=== PATIENT | female | born 1970 | race African-American/Black ===

== ENCOUNTER 2016-11-15 11:53 | Inpatient (IN) | payer OTHER ==
[2016-11-15 13:03] VITALS: BMI 15.0
--- NOTE | 2016-11-15 15:43 | HP ---
COWS - Scale Resting Pulse: 1= UT 81-100 Sweatin=Flushed/Facial Moisture Restless Observation: 1= Difficult to Sit Still Pupil Size: 1= Pupils >than Normal Bone or Joint Aches: 2= Severe Diffuse Aches Runny Nose/ Eye Tearin= Constantly Teary/Runny GI Upset > 30mins: 1= Stomach Cramp Tremor Observation: 2= Slight Tremor Visible Yawning Observation: 0= None Anxiety or Irritability: 2=Irritable/Anxious Goose Flesh Skin: 0=Smooth Skin COWS Score: 16 CIWA Score - CIWA Score Nausea/Vomitin Muscle Tremors: 3 Anxiety: 4-Mod. Anxious/Guarded Agitation: 4-Moderately Restless Paroxysmal Sweats: 3 Orientation: 0-Oriented Tacttile Disturbances: 2-Mild Itch/Numbness/Burn Auditory Disturbances: 0-None Visual Disturbances: 0-None Headache: 0-None Present CIWA-Ar Total Score: 19 Admission ROS BHS - HPI Chief Complaint: I need help to stop using drugs -i want a life History of Present Illness: 45 y/o f pt with h/o heroin crack and alcohol dependency seeking detox. Exam Limitations: No Limitations - Ebola screening Have you traveled outside of the country in the last 21 days: No Have you had contact with anyone from an Ebola affected area: No Have you been sick,other than usual withdrawal symptoms: No Do you have a fever: No - Review of Systems Constitutional: Malaise, Night Sweats, Changes in sleep, Unintentional Wgt. Loss (10 x 4 months) EENT: reports: No Symptoms Reported Respiratory: reports: No Symptoms reported Cardiac: reports: No Symptoms Reported GI: reports: Nausea, Indigestion : reports: Frequency, Urgency Musculoskeletal: reports: Muscle Weakness (legs swathi) Integumentary: reports: No Symptoms Reported Neuro: reports: Weakness Endocrine: reports: No Symptoms Reported Hematology: reports: No Symptoms Reported Psychiatric: reports: Agitated, Anxious, Depressed, other (crying) Other Systems: Reviewed and Negative Patient History - Patient Medical History Hx Anemia: No Hx Asthma: Yes Hx Chronic Obstructive Pulmonary Disease (COPD): No Hx Cancer: No Hx Cardiac Disorders: No Hx Congestive Heart Failure: No Hx Hypertension: No Hx Hypercholesterolemia: Yes Hx Pacemaker: No HX Cerebrovascular Accident: No Hx Seizures: Yes (last sz 2 months ago. ) Hx Dementia: No Hx Diabetes: No Hx Gastrointestinal Disorders: Yes Hx Liver Disease: No Hx Genitourinary Disorders: Yes (uti, polyuria, cloudy urine ) Hx Sexually Transmitted Disorders: No Hx Renal Disease (ESRD): No Hx Thyroid Disease: No Hx Human Immunodeficiency Virus (HIV): No Hx Hepatitis C: Yes Hx Depression: Yes Hx Suicide Attempt: Yes (cut wrist 4 m ago. ) Hx Bipolar Disorder: Yes Hx Schizophrenia: No - Patient Surgical History Past Surgical History: No - PPD History Documented Results: Negative w/o proof PPD to be Administered?: Yes - Reproductive History Patient is a Female of Child Bearing Age (11 -55 yrs old): Yes Last Menstrual Period: 05/17/16 Patient : No - Smoking Cessation Smoking history: Current every day smoker Have you smoked in the past 12 months: Yes Aproximately how many cigarettes per day: 10 Cigars Per Day: 0 Hx Chewing Tobacco Use: No Initiated information on smoking cessation: Yes 'Breaking Loose' booklet given: 11/15/16 - Substance & Tx. History Hx Alcohol Use: Yes Hx Substance Use: Yes Substance Use Type: Alcohol, Cocaine, Heroin Hx Substance Use Treatment: Yes - Substances Abused Alcohol Route: Oral Frequency: Daily Amount used: beer 5 , 24 oz cans /d Age of first use: 14 Date of Last Use: 11/15/16 Crack Route: Smoking Frequency: Daily Amount used: $50./d Age of first use: 14 Date of Last Use: 11/14/16 Heroin Route: Inhalation Frequency: Daily Amount used: 1 bundle/d Age of first use: 16 Date of Last Use: 11/15/16 Family Disease History - Family Disease History Family Disease History: Other: Sister (sz, asthma ) Admission Physical Exam BHS - Vital Signs Vital Signs: Vital Signs - 24 hr 11/15/16 13:00 Temperature 98.3 F Pulse Rate 99 H Respiratory 18 Rate Blood Pressure 148/106 45 y/o slim f pt crying , anxious but aox3 cooperative with exam - Physical General Appearance: Yes: Disheveled, Thin, Irritable, Sweating, Anxious HEENTM: Yes: EOMI, Hearing grossly Normal, Normocephalic, Normal Voice, CHARLES Respiratory: Yes: Chest Non-Tender, Lungs Clear, Normal Breath Sounds, No Respiratory Distress Neck: Yes: Supple, Trachea in good position Breast: Yes: Breast Exam Deferred Cardiology: Yes: Regular Rhythm, Regular Rate, S1, S2 Abdominal: Yes: Non Tender, Flat, Soft, Increased Bowel Sounds Genitourinary: Yes: Uregency Back: Yes: Decreased Range of Motion Musculoskeletal: Yes: Muscle Pain (legs) Extremities: Yes: Tremors Neurological: Yes: surfacer operator II-XII NML intact, Fully Oriented, Alert, Motor Strength 5/5, Normal Response Integumentary: Yes: Normal Color Lymphatic: Yes: Within Normal Limits - Diagnostic (1) Opioid dependence with withdrawal Current Visit: Yes Status: Chronic (2) Alcohol dependence with uncomplicated withdrawal Current Visit: Yes Status: Chronic (3) Crack cocaine use Current Visit: Yes Status: Chronic (4) HTN (hypertension) Current Visit: Yes Status: Chronic Qualifiers: Hypertension type: essential hypertension Qualified Code(s): I10 - Essential (primary) hypertension (5) UTI (urinary tract infection) Current Visit: Yes Status: Acute Qualifiers: Urinary tract infection type: acute cystitis (6) Depression Current Visit: Yes Status: Chronic Qualifiers: Depression Type: unspecified Qualified Code(s): F32.9 - Major depressive disorder, single episode, unspecified (7) Bipolar 1 disorder Current Visit: Yes Status: Chronic Cleared for Admission BHS - Detox or Rehab Detox Regimen/Protocol: Methadone/Valium BHS Breath Alcohol Content Breath Alcohol Content: 0 Urine Pregancy Test - Result Urine Test Results: Negative- NO Line Present Urine Drug Screen - Results Drug Screen Negative: No Urine Drug Screen Results: THC-Marijuana, EUNICE-Cocaine, OPI-Opiates, TCA- Tricyclic Antidepress
[2016-11-15] MEDS ORDERED: ACETAMINOPHEN 325 MG TABLET (FP) PO PRN (16:03)
[2016-11-15] MEDS ORDERED: diazePAM 5 MG TABLET PO PRN (16:03)
[2016-11-15] MEDS ORDERED: MAGNESIUM CITRATE 300 ML BOTTLE PO PRN (16:03)
[2016-11-15] MEDS ORDERED: MAG HYDROX/AL HYDROX/SIMETH 30 ML UNIT-DOSE CUP PO PRN (16:03)
[2016-11-15] MEDS ORDERED: IBUPROFEN 400 MG TABLET (FP) PO PRN (16:03)
[2016-11-15] MEDS ORDERED: P-EPHED 60MG/TRIPROLIDI 2.5MG TABLET PO PRN (16:03)
[2016-11-15] MEDS ORDERED: guaiFENesin/D-METHORPHAN HB 10 ML UNIT-DOSE CUPS PO PRN (16:03)
[2016-11-15] MEDS ORDERED: NICOTINE POLACRILEX 4 MG GUM BC PRN (16:03)
[2016-11-15] MEDS ORDERED: hydrOXYzine PAMOATE 25 MG CAPSULE (FP) PO PRN (16:03)
[2016-11-15] MEDS ORDERED: LOPERAMIDE HCL 2 MG CAPSULE PO PRN (16:03)
[2016-11-15] MEDS ORDERED: MENTHOL/PHENOL 1 EACH UD MM PRN (16:03)
[2016-11-15] MEDS ORDERED: diphenhydrAMINE HCL 50 MG CAPSULE PO PRN (16:03)
[2016-11-15] MEDS ORDERED: MAGNESIUM HYDROX 2400MG/30ML ORAL SUSPENSION 30 ML CUP PO PRN (16:03)
[2016-11-15] MEDS ORDERED: METHADONE HCL 10 MG TABLET (FOR DETOX USE ONLY) PO ONE ×2 (17:30→23:00)
[2016-11-15] MEDS ORDERED: diazePAM 5 MG TABLET PO ONE (17:30)
[2016-11-15 19:42] VITALS: BP 124/76; PULSE 114; TEMP 98.1
--- NOTE | 2016-11-15 19:42 | PN ---
[facility] Progress Note Note: respond to rapid response, received reports that the patient syncope, lying on floor, hit her head on floor assist to wheel chair, patient became alert, speech clearly, normal cephalic, PERRLA, EOMI, tachychardia, wheezing bilaterally, vomiting x 1 during nebulizer, shortness of breath, ambulance was called, information provided to er
[2016-11-15] MEDS ORDERED: diazePAM 5 MG TABLET PO SCH (22:00)
[2016-11-15] MEDS ORDERED: THIAMINE HCL 100 MG TABLET (FP) PO SCH (22:00)
[2016-11-15] MEDS ORDERED: DIVALPROEX SODIUM 500 MG TABLET E.C. PO SCH (22:00)
[2016-11-15 22:34] LABS: URINE APPEARANCE TURBID; URINE BILIRUBIN NEGATIVE (NEGATIVE); URINE COLOR YELLOW; URINE GLUCOSE (UA) NEGATIVE (NEGATIVE); URINE KETONE NEGATIVE (NEGATIVE); URINE NITRITE NEGATIVE (NEGATIVE); URINE UROBILINOGEN NEGATIVE E.U./dl (0.2-1.0)
[2016-11-15 22:51] LABS: URINE BLOOD 1+ (NEGATIVE); URINE LEUK ESTERASE 2+ (NEGATIVE); URINE PROTEIN 1+ (NEGATIVE)
[2016-11-15 23:03] LABS: URINE BACTERIA RARE /hpf (NONE SEEN); URINE MUCUS RARE; URINE RBC 31 /hpf (0-3); URINE WBC 28 /hpf (3-5); YEAST MANY
--- NOTE | 2016-11-16 02:00 | PN ---
[facility] Progress Note Note: PER HCG FROM HER ER ADMISSION, PT. IS . ENVIRONMENTAL CONSULTANT S/W THE RN AT [facility] ([facility]) AND STATED WE DO NOT DETOX WOMEN. FOOT DRILL OPERATOR ALSO S/W ОЛЕГ HUTTON TO CONFIRM HER THAT THE PT. CANNOT CONTINUE DETOX.
--- NOTE | 2016-11-16 09:02 | DS ---
[facility] Detox Discharge Summary Admission Date: 11/15/16 Discharge Date: 11/16/16 - History Present History: Alcohol Dependence, Cocaine Dependence, Opioid Dependence - Physical Exam Results Vital Signs: Vital Signs Temperature 98.1 F 11/15/16 19:41 Pulse Rate 114 H 11/15/16 19:41 Respiratory Rate 18 11/16/16 03:30 Blood Pressure 124/76 11/15/16 19:41 O2 Sat by Pulse Oximetry (%) - Treatment Hospital Course: Detox Protocol Followed - Medication Discharge Medications: Ambulatory Orders Clonidine HCl [Catapres -] 0.2 mg PO BID 11/15/16 Divalproex Sodium [Depakote] 500 mg PO BID #20 tablet. 11/15/16 Divalproex [Depakote -] 500 mg PO BID 11/15/16 Quetiapine Fumarate [Seroquel -] 150 mg PO HS 11/15/16 - Diagnosis (1) Opioid dependence with withdrawal Status: Chronic (2) Alcohol dependence with uncomplicated withdrawal Status: Chronic (3) Crack cocaine use Status: Chronic (4) HTN (hypertension) Status: Chronic Qualifiers: Hypertension type: essential hypertension Qualified Code(s): I10 - Essential (primary) hypertension (5) UTI (urinary tract infection) Status: Acute Qualifiers: Urinary tract infection type: acute cystitis (6) Depression Status: Chronic Qualifiers: Depression Type: unspecified Qualified Code(s): F32.9 - Major depressive disorder, single episode, unspecified (7) Bipolar 1 disorder Status: Chronic (8) Status: Acute - AMA Did Patient Leave Against Medical Advice: No
[2016-11-16] MEDS ORDERED: amLODIPine BESYLATE 5 MG TABLET (FP) PO SCH (10:00)
[2016-11-16] MEDS ORDERED: PRENATAL VITAMINS W/ FOLIC ACID TABLET (FP) PO SCH (10:00)
[2016-11-16] MEDS ORDERED: NICOTINE 21 MG/24 HOURS TOPICAL PATCH TD SCH (10:00)
[2016-11-16] MEDS ORDERED: METHADONE HCL 10 MG TABLET (FOR DETOX USE ONLY) PO SCH (10:00)
[2016-11-16 11:45] LABS: MCHC 32.4 g/dl (32.0-36.0); MEAN CELL VOLUME 98.9 fl (80-96); MEAN PLT VOLUME 10.7 fl (7.5-11.1); RDW 14.9 % (11.6-15.6); WHITE BLOOD COUNT 7.6 K/mm3 (4.0-10.0)
[2016-11-16 11:46] LABS: ALBUMIN 3.7 g/dl (3.4-5.0); CALCIUM 9.6 mg/dL (8.5-10.1)
[2016-11-16 11:50] LABS: BILIRUBIN,TOTAL 0.6 mg/dL (0.2-1.0); COCKROFT - GAULT 54.9355; TOT PROT 7.9 g/dl (6.4-8.2)
[2016-11-16] MEDS ORDERED: INFLUENZA VACCINE 45 MCG/0.5 ML (MDV 16-17) IM ONE (12:00)
[2016-11-16 12:01] LABS: HIV 1 & 2 AB NEGATIVE; HIV 1 AGp24 NEGATIVE
[2016-11-16 13:27] LABS: PLATELET ESTIMATE DECREASED (NORMAL)
[2016-11-16 13:28] LABS: ANISOCYTOSIS 1+; HYPOCHROMIA 1+; PLATELET COUNT 255 K/MM3 (134-434)
--- NOTE | 2016-11-16 13:59 | EKG ---
Test Reason : Blood Pressure : / mmHG Vent. Rate : 089 BPM Atrial Rate : 089 BPM P-R Int : 124 ms QRS Dur : 082 ms QT Int : 378 ms P-R-T Axes : 068 064 052 degrees QTc Int : 459 ms NORMAL SINUS RHYTHM POSSIBLE LEFT ATRIAL ENLARGEMENT LEFT VENTRICULAR HYPERTROPHY NONSPECIFIC T WAVE ABNORMALITY ABNORMAL ECG NO PREVIOUS ECGS AVAILABLE CLINICAL CORRELATION IS RECOMMENDED Confirmed by SALENA DARBY, MIGUEL ([id number]) on 11/16/2016 1:58:39 PM Referred By: Confirmed By:MIGUEL MARTINO MD
[2016-11-17] MEDS ORDERED: diazePAM 5 MG TABLET PO SCH (10:00)
[2016-11-17] MEDS ORDERED: METHADONE HCL 5 MG TABLET (FOR DETOX USE ONLY) PO SCH (10:00)
[2016-11-19] MEDS ORDERED: diazePAM 5 MG TABLET PO SCH (10:00)
[2016-11-19] MEDS ORDERED: METHADONE HCL 10 MG TABLET (FOR DETOX USE ONLY) PO SCH (10:00)
[2016-11-20] MEDS ORDERED: METHADONE HCL 5 MG TABLET (FOR DETOX USE ONLY) PO SCH (06:00)
== END 2016-11-16 07:09 | disposition short-term general hospital (02) | DRG 566 ==
LOC: YASAS 11:53 → Y6N 16:29
PROVIDERS: ADMIT Internal Medicine Addiction Medicine; ATTEND Internal Medicine Addiction Medicine
PROC: HZ2ZZZZ Detoxification Services for Substance Abuse Treatment (ICD-10-PCS; principal; 2016-11-16)
DX: O99.321 Drug use complicating pregnancy, first trimester (principal); F11.23 Opioid dependence with withdrawal; O99.311 Alcohol use complicating pregnancy, first trimester; F10.239 Alcohol dependence with withdrawal, unspecified; O99.341 Other mental disorders complicating pregnancy, first trimester; O23.41 Unspecified infection of urinary tract in pregnancy, first trimester; Z3A.00 Weeks of gestation of pregnancy not specified; R55 Syncope and collapse
CPT/HCPCS: 36415; 80053; 81003; 81015; 85027; 86593; 87389; 93005; 93010

== ENCOUNTER 2016-11-15 20:08 | Emergency (ER) | payer OTHER ==
--- NOTE | 2016-11-15 20:25 | PDOC ---
History of Present Illness - General Stated Complaint: SYNCOPE Time Seen by Provider: 11/15/16 20:15 History Source: Patient, EMS Exam Limitations: No Limitations - History of Present Illness Presenting Symptoms: Other (no complaints) Past History - Travel Traveled outside of the country in the last 30 days: No Close contact w/someone who was outside of country & ill: No - Past Medical History Allergies/Adverse Reactions: Allergies Allergy/AdvReac Type Severity Reaction Status Date / Time aripiprazole [From Abiliy] Allergy Severe Swelling Verified 11/15/16 20:32 Home Medications: Ambulatory Orders Clonidine HCl [Catapres -] 0.2 mg PO BID 11/15/16 Divalproex Sodium [Depakote] 500 mg PO BID #20 tablet. 11/15/16 Divalproex [Depakote -] 500 mg PO BID 11/15/16 Quetiapine Fumarate [Seroquel -] 150 mg PO HS 11/15/16 Anemia: No Asthma: Yes (Pt is on MDI.) Cancer: No Cardiac Disorders: No CVA: No COPD: No CHF: No Dementia: No Diabetes: No GI Disorders: No Disorders: No HTN: Yes (on meds.) Hypercholesterolemia: Yes Kidney Stones: No Liver Disease: No Suicide Attempt (Hx): Yes (Pt tried to cut herself 4 months ago.) Seizures: Yes (etoh related seizures last 1 month ago.) Thyroid Disease: No - Reproductive History PID: No - Psycho/Social/Smoking Cessation Hx Anxiety: Yes Suicidal Ideation: No Smoking History: Current every day smoker Have you smoked in the past 12 months: Yes Number of Cigarettes Smoked Daily: 10 Cigars Per Day: 0 'Breaking Loose' booklet given: 11/15/16 Hx Alcohol Use: Yes Drug/Substance Use Hx: Yes Substance Use Type: Alcohol, Cocaine, Heroin Hx Substance Use Treatment: Yes Cardiac Specific PMH - Complaint Specific PMHX Pacemaker: No Review of Systems - Review of Systems Able to Perform ROS?: Yes Comments:: 11/15/16 20:25 CONSTITUTIONAL: Absent: fever, chills, diaphoresis, generalized weakness, malaise, loss of appetite HEENT: Absent: rhinorrhea, nasal congestion, throat pain, throat swelling, difficulty swallowing, mouth swelling, ear pain, eye pain, visual Changes CARDIOVASCULAR: Absent: chest pain, loss of consciousness, palpitations, irregular heart rate, peripheral edema RESPIRATORY: Absent: cough, shortness of breath, dyspnea with exertion, orthopnea, wheezing, stridor, hemoptysis GASTROINTESTINAL: Absent: abdominal pain, abdominal distension, nausea, vomiting, diarrhea, constipation, melena, hematochezia GENITOURINARY: Absent: dysuria, frequency, urgency, hesitancy, hematuria, flank pain, genital pain MUSCULOSKELETAL: Absent: myalgia, arthralgia, joint swelling SKIN: Absent: rash, itching, pallor HEMATOLOGIC/IMMUNOLOGIC: Absent: easy bleeding, easy bruising, lymphadenopathy, frequent infections ENDOCRINE: Absent: unexplained weight gain, unexplained weight loss, heat intolerance, cold intolerance NEUROLOGIC: Syncope Absent: headache, focal weakness or paresthesias, dizziness, unsteady gait, seizure, mental status changes, bladder or bowel incontinence PSYCHIATRIC: Absent: anxiety, depression, suicidal or homicidal ideation, hallucinations. Is the patient limited Kazakh proficient: No *Physical Exam - Vital Signs Last Vital Signs Temp Pulse Resp BP Pulse Ox 98.7 F 94 H 18 144/94 99 11/15/16 20:15 11/16/16 01:32 11/16/16 01:32 11/16/16 01:32 11/16/16 01:32 - Physical Exam Comments: 11/15/16 20:25 GENERAL: Well developed, well nourished. Awake and alert. No acute distress. HEENT: Normocephalic, atraumatic. PERRLA, EOMI. No conjunctival pallor. Sclera are non- icteric. Moist mucous membranes. Oropharynx is clear. NECK: Supple. Full ROM. No JVD. Carotid pulses 2+ and symmetric, without bruits. No thyromegaly. No lymphadenopathy. CARDIOVASCULAR: Regular rate and rhythm. No murmurs, rubs, or gallops. Distal pulses are 2+ and symmetric. PULMONARY: No evidence of respiratory distress. Lungs clear to auscultation bilaterally. No wheezing, rales or rhonchi. ABDOMINAL: Soft. Non-tender. Non-distended. No rebound or guarding. No organomegaly. Normoactive bowel sounds. MUSCULOSKELETAL Normal range of motion at all joints. No bony deformities or tenderness. No CVA tenderness. EXTREMITIES: No cyanosis. No clubbing. No edema. No calf tenderness. SKIN: Warm and dry. Normal capillary refill. No rashes. No jaundice. NEUROLOGICAL: Alert, awake, appropriate. Cranial nerves 2-12 intact. No deficits to light touch and temperature in face, upper extremities and lower extremities. No motor deficits in the in face, upper extremities and lower extremities. Normoreflexic in the upper and lower extremities. Normal speech. Toes are down- going bilaterally. Gait is normal without ataxia. PSYCHIATRIC: Cooperative. Good eye contact. Appropriate mood and affect. 11/16/16 05:41 Pelvic: External genitalia normal without lesions. Vaginal vault is clear without blood or discharge. Cervix is long and closed. No cervical motion tenderness. Uterus is nontender and normal in size. Adnexa are nontender and without masses. Heart Score/ECG Review - History History: Slightly suspicious - Electrocardiogram EKG: Normal - Age Age: >/= 65 - Risk Factors Risk Factors Heart Score: Yes Hx Hypertension, Yes Smoking History Based on the list above the patient has:: 1-2 risk factors - Troponin Troponin: </= normal limit - Score Heart Score - Total: 3 ED Treatment Course - LABORATORY CBC & Chemistry Diagram: 11/15/16 20:40 11/15/16 20:40 - ADDITIONAL ORDERS Additional order review: Laboratory Results 11/16/16 11/15/16 11/15/16 00:50 22:08 22:08 Sodium Potassium Chloride Carbon Dioxide Anion Gap BUN Creatinine Creat Clearance w eGFR Random Glucose Calcium Total Bilirubin AST ALT Alkaline Phosphatase Creatine Kinase Troponin I Total Protein Albumin Beta HCG, Quant Serum , Qual Urine Color Yellow Urine Appearance Clear Urine pH 7.0 Ur Specific [place] 1.025 Urine Protein 1+ H Urine Glucose (UA) Negative Urine Ketones Negative Urine Blood 2+ H Urine Nitrite Negative Urine Bilirubin Negative Urine Urobilinogen 2.0 e.u/dl H Ur Leukocyte Esterase Trace H D Urine RBC 86 Urine WBC 9 Ur Epithelial Cells Rare Hyaline Casts 1 Urine Mucus Rare Opiates Screen Positive Methadone Screen Positive Barbiturate Screen Negative Valproic Acid Phencyclidine Screen Negative Ur Amphetamines Screen Negative MDMA (Ecstasy) Screen Negative Benzodiazepines Screen Positive Cocaine Screen Positive U Marijuana (THC) Screen Positive Alcohol, Quantitative Blood Type A NEGATIVE Antibody Screen Negative 11/15/16 11/15/16 11/15/16 21:51 20:40 20:40 Sodium Potassium Chloride Carbon Dioxide Anion Gap BUN Creatinine Creat Clearance w eGFR Random Glucose Calcium Total Bilirubin AST ALT Alkaline Phosphatase Creatine Kinase Troponin I Total Protein Albumin Beta HCG, Quant 6.5 Serum , Qual Positive Urine Color Urine Appearance Urine pH Ur Specific [place] Urine Protein Urine Glucose (UA) Urine Ketones Urine Blood Urine Nitrite Urine Bilirubin Urine Urobilinogen Ur Leukocyte Esterase Urine RBC Urine WBC Ur Epithelial Cells Hyaline Casts Urine Mucus Opiates Screen Methadone Screen Barbiturate Screen Valproic Acid < 3.000 L Phencyclidine Screen Ur Amphetamines Screen MDMA (Ecstasy) Screen Benzodiazepines Screen Cocaine Screen U Marijuana (THC) Screen Alcohol, Quantitative Blood Type Antibody Screen 11/15/16 11/15/16 11/15/16 20:40 20:40 20:40 Sodium 142 Potassium 4.2 Chloride 103 Carbon Dioxide 29 Anion Gap 10 BUN 22 H Creatinine 1.3 H Creat Clearance w eGFR 44.29 Random Glucose 126 H Calcium 9.0 Total Bilirubin 0.2 AST 21 ALT 20 Alkaline Phosphatase 109 Creatine Kinase 80 Troponin I < 0.02 Total Protein 7.1 Albumin 3.4 Beta HCG, Quant Serum , Qual Urine Color Urine Appearance Urine pH Ur Specific [place] Urine Protein Urine Glucose (UA) Urine Ketones Urine Blood Urine Nitrite Urine Bilirubin Urine Urobilinogen Ur Leukocyte Esterase Urine RBC Urine WBC Ur Epithelial Cells Hyaline Casts Urine Mucus Opiates Screen Methadone Screen Barbiturate Screen Valproic Acid Phencyclidine Screen Ur Amphetamines Screen MDMA (Ecstasy) Screen Benzodiazepines Screen Cocaine Screen U Marijuana (THC) Screen Alcohol, Quantitative < 5.0 Blood Type Antibody Screen 11/15/16 20:40 RBC 4.11 MCV 97.4 H MCHC 33.0 RDW 15.0 MPV 8.7 Neutrophils % 53.2 Lymphocytes % 36.3 Monocytes % 8.3 Eosinophils % 1.7 Basophils % 0.5 - RADIOLOGY Radiology Studies Ordered: Category Date Time Status TRANSVAGINAL US PREG [US] Stat Ultrasound 11/15/16 22:06 Completed Progress Note - Progress Note Progress Note: 45-year-old female sue with a past medical history of seizures, IVDA/heroin and alcohol abuse presents to the emergency department complaining of a dizziness 30 minutes prior to her arrival to the ER. Patient states she arrived at [address] [place] [address]/heroin and alcohol detox center at approximately 4 PM today. One hour later, patient felt dizzy/described as room spinning and fell but adamantly denies syncopal episode. Patient denies any headache, lightheadedness, headaches, neck pain, chest pain, shortness of breath, abdominal pains, urinary symptoms, extremity numbness or tingling sensation. Patient states she has no complaints. Patient states she feels fine and wishes to return back to the detox center. Patient takes Depakote 500 mg twice a day but states ran out of medication and has not been noncompliant for approximately 3 weeks. LMP x3 weeks ago I spoke to Mervat Bazan/the nurse practitioner at the detox center at [address] [place] [address], I was informed that because the patient is , she will not be able to detox at the facility. Patient was informed of this situation and she wishes to be discharged. Patient states because she is , she will remain abstinence from or drugs and alcohol. *DC/Admit/Observation/Transfer Diagnosis at time of Disposition: Crack cocaine use, Alcohol dependence with uncomplicated withdrawal, Threatened , Alcohol abuse, Drug abuse - Discharge Dispostion Disposition: I.P. ALCOHOL/SUBS ABUSE REHAB Condition at time of disposition: Stable - Prescriptions Prescriptions: Divalproex Sodium [Depakote] 500 mg PO BID #20 tablet.dr - Referrals Referrals: Kwabena Fernandez MD [Staff Physician] - Yoni Toro MD [Staff Physician] - - Patient Instructions Printed Discharge Instructions: DI for Drug Abuse and Drug Addiction, DI for Alcohol Abuse, DI for Threatened Additional Instructions: Follow with the warehouse packaging supervisor listed on your discharge You informed that you cannot be admitted to [facility]/detox [place] because of your recent . Please remain abstinence from or drug and alcohol. Return to the emergency department for any complaints
[2016-11-15 20:32] VITALS: TEMP 98.7; BMI 19.8
--- NOTE | 2016-11-15 20:34 | PDOC ---
*Physical Exam - Vital Signs Last Vital Signs Temp Pulse Resp BP Pulse Ox 98.7 F 100 H 18 129/85 100 11/15/16 20:15 11/15/16 20:15 11/15/16 20:15 11/15/16 20:15 11/15/16 20:15 ED Treatment Course - LABORATORY CBC & Chemistry Diagram: 11/15/16 20:40 11/15/16 20:40 Medical Decision Making - Medical Decision Making 11/15/16 20:34 agree with care from ОЛЕГ Patino. *DC/Admit/Observation/Transfer Diagnosis at time of Disposition: Crack cocaine use, Alcohol dependence with uncomplicated withdrawal, Threatened , Alcohol abuse, Drug abuse - Discharge Dispostion Disposition: I.P. ALCOHOL/SUBS ABUSE REHAB Condition at time of disposition: Stable - Prescriptions Prescriptions: Divalproex Sodium [Depakote] 500 mg PO BID #20 tablet.dr - Referrals Referrals: Yoni Toro MD [Staff Physician] - Kwabena Fernandez MD [Staff Physician] - - Patient Instructions Printed Discharge Instructions: DI for Threatened , DI for Alcohol Abuse, DI for Drug Abuse and Drug Addiction Additional Instructions: Follow with the loan interviewer mortgage listed on your discharge You informed that you cannot be admitted to [facility]/detox center because of your recent . Please remain abstinence from or drug and alcohol. Return to the emergency department for any complaints
[2016-11-15 20:52] LABS: BASOPHIL 0.5 % (0-2.0); EOSINOPHIL 1.7 % (0-4.5); MCH 32.1 pg (25.7-33.7); MEAN CELL VOLUME 97.4 fl (80-96); MEAN PLT VOLUME 8.7 fl (7.5-11.1); NEUTROPHILS 53.2 % (42.8-82.8); PLATELET COUNT 266 K/MM3 (134-434); WHITE BLOOD COUNT 9.5 K/mm3 (4.0-10.0)
[2016-11-15 21:28] LABS: ALBUMIN 3.4 g/dl (3.4-5.0); BILIRUBIN,TOTAL 0.2 mg/dL (0.2-1.0); CREATININE 1.3 mg/dL (0.55-1.02); TOT PROT 7.1 g/dl (6.4-8.2)
[2016-11-15 21:29] LABS: TROPONIN I < 0.02 ng/ml (0.00-0.05)
[2016-11-15 22:30] LABS: URINE APPEARANCE CLEAR; URINE BILIRUBIN NEGATIVE (NEGATIVE); URINE COLOR YELLOW; URINE GLUCOSE (UA) NEGATIVE (NEGATIVE); URINE KETONE NEGATIVE (NEGATIVE); URINE NITRITE NEGATIVE (NEGATIVE); URINE UROBILINOGEN 2.0 E.U/dl E.U./dl (0.2-1.0)
[2016-11-15 22:51] LABS: URINE BLOOD 2+ (NEGATIVE); URINE LEUK ESTERASE TRACE (NEGATIVE); URINE PROTEIN 1+ (NEGATIVE)
[2016-11-15 22:52] LABS: URINE MARIJUANA THC POSITIVE ng/ml (CUTOFF=50)
[2016-11-15 23:00] LABS: URINE HYALINE CAST 1 /lpf; URINE MUCUS RARE; URINE RBC 86 /hpf (0-3); URINE WBC 9 /hpf (3-5)
[2016-11-16 01:33] VITALS: BP 144/94; PULSE 94
--- NOTE | 2016-11-16 13:38 | EKG ---
Test Reason : Blood Pressure : / mmHG Vent. Rate : 098 BPM Atrial Rate : 098 BPM P-R Int : 128 ms QRS Dur : 080 ms QT Int : 368 ms P-R-T Axes : 067 060 056 degrees QTc Int : 469 ms NORMAL SINUS RHYTHM POSSIBLE LEFT ATRIAL ENLARGEMENT LEFT VENTRICULAR HYPERTROPHY NONSPECIFIC T WAVE ABNORMALITY PROLONGED QT ABNORMAL ECG WHEN COMPARED WITH ECG OF 15-NOV-2016 17:00, QT HAS LENGTHENED CLINICAL CORRELATION IS RECOMMENDED Confirmed by MIGUEL MARTINO MD ([id number]) on 11/16/2016 1:38:32 PM Referred By: Confirmed By:MIGUEL MARTINO MD
== END 2016-11-16 06:00 | disposition other institution (70) ==
LOC: JER 20:08
DX: R55 Syncope and collapse (principal); O20.0 Threatened abortion; F10.230 Alcohol dependence with withdrawal, uncomplicated; F14.10 Cocaine abuse, uncomplicated; F10.10 Alcohol abuse, uncomplicated
CPT/HCPCS: 36415; 76817-TC; 80053; 80164; 80307; 81003; 81015; 82550; 84484; 84702; 84703; 85025; 86850; 86900; 86901; 93005; 93010; 99283-25